=== PATIENT | female | born 1980 | race Caucasian/White ===

== ENCOUNTER 2023-03-07 18:54 | Emergency (ER) | payer SELFPAY ==
[~2023-03-07] VITALS: Ht 162.6 cm; Wt 63.0 kg
[2023-03-07 19:06] VITALS: BP 159/60; O2SAT 99
[2023-03-07] MEDS ORDERED: ACETAMINOPHEN 325MG TABLET PO PRN (19:30)
[2023-03-07 22:52] LABS: BASOPHILS % 0.4 % (0.0-2.0); EOSINOPHILS % 2.2 % (0.0-5.0); HEMATOCRIT. 36.7 % (36.0-48.0); HEMOGLOBIN. 12.5 g/dL (12.0-16.0); LYMPHOCYTES % 27.5 % (20.0-50.0); MEAN CORPUSCULAR HEMOGLOBIN 30.8 pg (28.0-32.0); MEAN CORPUSCULAR HGB CONC 34.1 g/dL (31.0-37.0); MEAN CORPUSCULAR VOLUME 90.2 fL (81.0-99.0); MEAN PLATELET VOLUME 6.8 fl (7.4-10.4); MONOCYTES % 5.5 % (2.0-8.0); NEUTROPHILS % 64.4 % (40.0-76.0); PLATELET 305 x1000/uL (130-400); RED BLOOD CELL COUNT 4.07 mill/uL (4.2-5.4); RED CELL DISTRIBUTION WIDTH 13.3 % (11.6-14.6); WHITE BLOOD COUNT 8.5 x1000/uL (4.5-11.0)
[2023-03-07 23:02] LABS: CLARITY URINE TURBID (CLEAR); COLOR URINE RED (YELLOW); GLUCOSE URINE NEGATIVE (NEGATIVE); KETONES URINE NEGATIVE (NEGATIVE); LEUKOCYTE ESTERASE URINE 2+ (NEGATIVE); NITRITE URINE POSITIVE (NEGATIVE); OCCULT BLOOD URINE 2+ (NEGATIVE); PROTEIN URINE 2+ (NEGATIVE); UROBILINOGEN URINE 0.2 E.U./dL (0.2-1.0)
[2023-03-07 23:05] LABS: RBC URINE TNTC /hpf (0-2); SQUAMOUS EPITHELIAL CELL URINE NONE SEEN /lpf (RARE/1+)
[2023-03-07 23:07] LABS: CHLORIDE 108 mEq/L (98-107); INDEX HEMOLYSI 1 (1-3); INDEX ICTERIC 1 (1-4); INDEX LIPEMIC 1 (1-3); POTASSIUM 3.4 mEq/L (3.5-5.1); SODIUM 136 mEq/L (136-145)
[2023-03-07 23:17] LABS: BACTERIA URINE 1+
[2023-03-07 23:29] LABS: ALANINE AMINOTRANSFERASE 28 IU/L (13-61); ALBUMIN 3.4 g/dL (3.4-5.0); ASPARTATE AMINOTRANSFERASE 14 IU/L (15-37); B-HCG QUANTITATIVE 1614 mIU/mL (<3); BILIRUBIN TOTAL 0.3 mg/dL (0.1-1.0); CALCIUM 7.6 mg/dL (8.5-10.1); CARBON DIOXIDE 26 mEq/L (21-32); CREATININE 0.6 mg/dL (0.6-1.3); GLUCOSE 155 mg/dL (70-105); PROTEIN TOTAL 7.2 g/dL (6.0-8.3); UREA NITROGEN BLOOD 12 mg/dL (7-21)
[2023-03-08] MEDS ORDERED: CEPH500C2 MT (00:12)
[2023-03-08] MEDS ORDERED: TOPUD MT (00:12)
[2023-03-08 00:36] VITALS: PULSE 91; RESP 20
== END 2023-03-08 00:39 | disposition home or self-care (01) ==
LOC: ER 18:54
DX: O03.9 Complete or unspecified spontaneous abortion without complication (principal); O46.91 Antepartum hemorrhage, unspecified, first trimester; Z3A.12 12 weeks gestation of pregnancy; O23.31 Infections of other parts of urinary tract in pregnancy, first trimester
CPT/HCPCS: 36415; 76801; 80053; 81003; 81025; 84702; 85025; 86850; 86900; 99284

== ENCOUNTER 2023-03-13 11:44 | Emergency (ER) | payer MEDICAID ==
[~2023-03-13] VITALS: Ht 154.9 cm; Wt 69.0 kg
[~2023-03-13 11:44] MED LIST: CEPH500C2 MT; TOPUD MT
[2023-03-13 12:07] VITALS: O2SAT 99
[2023-03-13] MEDS ORDERED: ACETAMINOPHEN 325MG TABLET PO STA (12:27)
[2023-03-13] MEDS ORDERED: IBUPROFEN 600MG TABLET PO STA (12:27)
[2023-03-13 12:52] LABS: BASOPHILS % 0.9 % (0.0-2.0); EOSINOPHILS % 2.8 % (0.0-5.0); HEMATOCRIT. 37.7 % (36.0-48.0); HEMOGLOBIN. 12.7 g/dL (12.0-16.0); LYMPHOCYTES % 30.1 % (20.0-50.0); MEAN CORPUSCULAR HEMOGLOBIN 30.1 pg (28.0-32.0); MEAN CORPUSCULAR HGB CONC 33.7 g/dL (31.0-37.0); MEAN CORPUSCULAR VOLUME 89.3 fL (81.0-99.0); MEAN PLATELET VOLUME 6.9 fl (7.4-10.4); MONOCYTES % 5.9 % (2.0-8.0); NEUTROPHILS % 60.3 % (40.0-76.0); PLATELET 306 x1000/uL (130-400); RED BLOOD CELL COUNT 4.22 mill/uL (4.2-5.4); RED CELL DISTRIBUTION WIDTH 13.5 % (11.6-14.6); WHITE BLOOD COUNT 5.5 x1000/uL (4.5-11.0)
[2023-03-13 13:10] LABS: CHLORIDE 107 mEq/L (98-107); INDEX HEMOLYSI 1 (1-3); INDEX ICTERIC 1 (1-4); INDEX LIPEMIC 1 (1-3); POTASSIUM 3.8 mEq/L (3.5-5.1); SODIUM 139 mEq/L (136-145)
[2023-03-13 13:16] LABS: ALANINE AMINOTRANSFERASE 28 IU/L (13-61); ALBUMIN 3.7 g/dL (3.4-5.0); ASPARTATE AMINOTRANSFERASE 14 IU/L (15-37); BILIRUBIN TOTAL 0.4 mg/dL (0.1-1.0); CALCIUM 7.9 mg/dL (8.5-10.1); CARBON DIOXIDE 28 mEq/L (21-32); CREATININE 0.7 mg/dL (0.6-1.3); ETHANOL BLOOD < 10 mg/dL (<10); GLUCOSE 83 mg/dL (70-105); PROTEIN TOTAL 7.7 g/dL (6.0-8.3); UREA NITROGEN BLOOD 14 mg/dL (7-21)
[2023-03-13 13:42] LABS: CLARITY URINE CLEAR (CLEAR); COLOR URINE YELLOW (YELLOW); GLUCOSE URINE NEGATIVE (NEGATIVE); KETONES URINE NEGATIVE (NEGATIVE); LEUKOCYTE ESTERASE URINE NEGATIVE (NEGATIVE); NITRITE URINE NEGATIVE (NEGATIVE); OCCULT BLOOD URINE NEGATIVE (NEGATIVE); PH URINE 6.5 (4.5-8.0); PROTEIN URINE NEGATIVE (NEGATIVE); SPECIFIC GRAVITY URINE 1.023 (1.005-1.030)
[2023-03-13] MEDS ORDERED: ACETAMINOPHEN 500MG TABLET PO NR (14:45)
[2023-03-13] MEDS ORDERED: IBUPROFEN 400MG TABLET PO NR (14:45)
[2023-03-13] MEDS ORDERED: KETOROLAC 30MG/ML VIAL IV ONE (19:30)
[2023-03-13 21:33] VITALS: BP 110/54; PULSE 72; RESP 18; TEMP 97.6
== END 2023-03-13 21:35 | disposition home or self-care (01) ==
LOC: ER 13:36 → EDBEDREQSVC 20:58 → ER 21:35
DX: R10.84 Generalized abdominal pain (principal); Z98.890 Other specified postprocedural states; Z20.822 Contact with and (suspected) exposure to COVID-19
CPT/HCPCS: 80053; 81003; 81025; 80320; 84702; 83605; 83690; 85025; 86850; 86900; 86901; 87804 ×2; 36415; 73502; 71045; 73110; 74177; 93005; 96374; 99285; 87426; Q9967; J1885; C9803; Z7610; G0480

== ENCOUNTER 2024-01-19 09:57 | Emergency (ER) | payer MEDICAID ==
[~2024-01-19] VITALS: Ht 152.4 cm; Wt 68.0 kg
[2024-01-19 10:19] VITALS: O2SAT 98
[2024-01-19] MEDS: ACETAMINOPHEN 500MG TABLET PO ONE (10:54)
[2024-01-19] MEDS ORDERED: AZEL50FO TP (11:06)
[2024-01-19 11:43] VITALS: BP 117/78; PULSE 79; RESP 18; TEMP 37.00296; O2SAT 100
[2024-01-19] MEDS ORDERED: PRED10TA MT (12:25)
== END 2024-01-19 11:44 | disposition home or self-care (01) ==
LOC: ER 10:00
DX: R21 Rash and other nonspecific skin eruption (principal); Z98.890 Other specified postprocedural states
CPT/HCPCS: 81025; 99283